=== PATIENT | female | born 1990 | race Caucasian/White ===

== ENCOUNTER 2018-12-11 07:42 | Day surgery (SDC) | payer BC ==
[~2018-12-11 07:42] MED LIST: ACETAMINOPHEN 1,000 MG/100 ML BTL IVPB ONE; FAMOTIDINE 20MG TABLET PO ONE; MECLIZINE 25 MG TABLET PO ONE; METOCLOPRAMIDE 10 MG TABLET PO ONE
[2018-12-11] MEDS ORDERED: SUGAMMADEX SODIUM 200 MG/2 ML VIAL IV ONE (07:43)
[2018-12-11] MEDS ORDERED: GLYCOPYRROLATE 0.2 MG/ML ML IV ONE (07:43)
[2018-12-11] MEDS ORDERED: ONDANSETRON HCL IV 4 MG/2 ML VIAL IVP ONE (07:43)
[2018-12-11] MEDS ORDERED: ESMOLOL HCL 100 MG/10 ML ML IVP ONE (07:43)
[2018-12-11] MEDS ORDERED: LIDOCAINE 2% MDV (20MG/ML) 20ML VIAL IV ONE (07:43)
[2018-12-11] MEDS ORDERED: MIDAZOLAM HCL 2MG/2ML VIAL IV ONE (07:43)
[2018-12-11] MEDS ORDERED: KETOROLAC 30 MG/ML VIAL IVP ONE (07:43)
[2018-12-11] MEDS ORDERED: FENTANYL PF 100MCG/2ML VIAL IV ONE (07:43)
[2018-12-11] MEDS ORDERED: SUCCINYLCHOLINE 20 MG/ML 10ML IVP ONE (07:43)
[2018-12-11] MEDS ORDERED: ROCURONIUM BROMIDE 50MG/5ML VIAL IV ONE (07:43)
[2018-12-11] MEDS ORDERED: SEVOFLURANE 250 ML INH ONE (07:43)
[2018-12-11] MEDS ORDERED: PROPOFOL 10 MG/ML VIAL IV ONE (07:43)
[2018-12-11] MEDS ORDERED: DEXAMETHASONE 4 MG/ML 1ML VIAL IVP ONE (07:43)
[2018-12-11] MEDS ORDERED: RINGERS SOLUTION,LACTATED 1,000 ML IV ONE ×2 (08:25→10:02)
[2018-12-11] MEDS ORDERED: BUPIVACAINE 0.25% W/EPI MPF 30ML VIAL SQ ONE ×2 (09:53)
[2018-12-11] MEDS: FENTANYL PF 100MCG/2ML VIAL IVP ONE ×3 (10:44→10:57)
[2018-12-11] MEDS ORDERED: FENTANYL PF 100MCG/2ML VIAL IVP ONE (11:27)
[2018-12-11] MEDS ORDERED: ACETAMINOPHEN W/ CODEINE 300MG/30MG TABLET PO ONE ×2 (11:28→11:29)
--- NOTE | 2018-12-11 19:20 | Discharge Summary ---
DATE OF SURGERY: 12/11/2018 SURGEON: Yayo Sanders DO PREOPERATIVE DIAGNOSIS: Symptomatic biliary dyskinesia. POSTOPERATIVE DIAGNOSIS: Symptomatic biliary dyskinesia. OPERATION: Laparoscopic cholecystectomy. INDICATION: The patient is a 28-year-old female who is having ongoing right subcostal pain. Ultrasound was negative. HIDA scan showed an ejection fraction of 6% with extreme reproduced pain. We did discuss cholecystectomy versus medical management. She desired surgical intervention. Risks include but are not limited to bleeding, infection, ductal injury, possible conversion to open, postoperative bile leak. She understood this fully. PROCEDURE: Thereafter, consent was signed and questions answered. She was taken to the operating room and placed in a supine position. General anesthesia was administered per the department of anesthesia. The patient's abdomen was prepped and draped in the usual sterile fashion. The infraumbilical region was anesthetized with a total of 5 mL of 0.25% Sensorcaine with epinephrine. A 2 cm infraumbilical incision was made. This was carried down to the anterior rectus fascia. This was incised. Reina clamps were placed on the fascial edges and brought up into the wound. Stay sutures of 0 Vicryl were placed. Posterior rectus sheath was identified and incised. The peritoneal cavity was entered bluntly. At this time, a 10 mm blunt Dixie port was placed. Adequate pneumoperitoneum was established. Under direct visualization, additional 5 mm epigastric and two 5 mm right subcostal ports were placed. The patient was rotated into steep reverse Trendelenburg with rotation to left. The gallbladder was identified. It was lifted in a cephalad and lateral direction opening up the angle of Calot. The hepatocystic triangle was thoroughly dissected out. There was no aberrant anatomy, no posterior ductal structures. The cystic duct and cystic artery were clearly identified. Each one was doubly clipped and cut in a standard fashion. Gallbladder was essentially peeled off the liver bed. This was placed in an EndoCatch bag and brought out through the umbilical port. Right upper quadrant was rechecked and found to be hemostatic. No bleeding. No bile leak. No bowel injury noted. The patient was leveled out. The pneumoperitoneum was released. All ports were removed. The fascia was closed with 0 Vicryl in a [id number] fashion. The skin at all ports was closed with 4-0 Vicryl. The patient was taken to the recovery room in satisfactory condition. Final pathology pending. CC: DO ELMER Urbina
== END 2018-12-11 11:50 | disposition home or self-care (01) ==
LOC: SUR 07:42
PROVIDERS: ATTEND Surgery
DX: K82.8 Other specified diseases of gallbladder (principal)
CPT/HCPCS: 47562; 00790; J1885; J2405; J3010; J3490; J0330; J7120